=== PATIENT | female | born 1980 | race Two or more races ===

== ENCOUNTER 2024-11-21 09:46 | Outpatient (CLI) | payer MEDICAID, SELFPAY ==
--- NOTE | 2024-11-21 10:33 | W.ANESCHARGE ---
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
--- NOTE | 2024-11-21 10:55 | W.ANESCHARGE ---
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
== END 2024-11-21 09:47 | disposition home or self-care (01) ==
PROVIDERS: PCP Nurse Practitioner Family; Visit Provider Internal Medicine Gastroenterology
DX: R10.13 Epigastric pain (principal)
CPT/HCPCS: 00731; 43239; 88305; 88342; T1013; J2704; J3490